=== PATIENT | male | born 1975 | race Native Hawaiian/Other Pacific Islander ===

== ENCOUNTER 2018-06-17 01:43 | Emergency (ER) | payer BC ==
[~2018-06-17] VITALS: Ht 165.1 cm; Wt 60.9 kg
[2018-06-17 03:21] VITALS: BP 120/79; TEMP 97.7
== END 2018-06-17 03:22 | disposition home or self-care (01) ==
LOC: ED 01:43
DX: S62.306A Unspecified fracture of fifth metacarpal bone, right hand, initial encounter for closed fracture (principal); W22.09XA Striking against other stationary object, initial encounter
CPT/HCPCS: 99282